=== PATIENT | female | born 2000 | race Caucasian/White ===

== ENCOUNTER 2021-04-03 17:11 | Emergency (ER) | payer BC ==
[~2021-04-03] VITALS: Ht 157.5 cm; Wt 106.7 kg
--- NOTE | 2021-04-03 17:36 | PHYS DOC ---
Past History Past Surgical History: Other Additional Past Surgical Histo: wisdom teeth (HOWIE LEE APRN) General Adult EDM: Chief Complaint: CHEST PAIN HPI: HPI: Patient is a 20-year-old female who presents to the ER for midsternal chest pain across chest which she rates 3 out of 10. She describes the pain as a dull ache. Pain started on Wednesday. Pain is worse with bending over. Patient reports mild shortness of breath. She denies any diaphoresis, nausea, vomiting, fever, cough. She states the symptoms started after getting her Covid vaccine. Patient has a history of IBS and GERD. Her vital signs are stable. Patient was seen for the symptoms at an urgent care this afternoon and was discharged with a steroid and inhaler that she did not feel. Patient instead went to her primary care provider who referred her to the ER for cardiac work-up. (HOWIE LEE APRN) Review of Systems: Review of Systems: 14 body systems of the review of systems have been reviewed. See HPI for pertinent positive and negative responses, otherwise all other systems are negative, nonpertinent or noncontributory (HOWIE LEE APRN) Physical Exam: PE: Constitutional: Well developed, well nourished, no acute distress, non-toxic appearance. [] HENT: Normocephalic, atraumatic, bilateral external ears normal, oropharynx moist, no oral exudates, nose normal. [] Eyes: PERRL, EOMI, conjunctiva normal, no discharge. [] Neck: Normal range of motion, no tenderness, supple, no stridor. [] Cardiovascular:Heart rate regular rhythm, no murmur [] Lungs & Thorax: Bilateral breath sounds clear to auscultation [] Abdomen: Bowel sounds normal, soft, no tenderness, no masses, no pulsatile masses. [] Skin: Warm, dry, no erythema, no rash. [] Back: Normal range of motion Extremities: No tenderness, no cyanosis, no clubbing, ROM intact, no edema. [] Neurologic: Alert and oriented X 3, normal motor function, normal sensory function, no focal deficits noted. [] Psychologic: Affect normal, judgement normal, mood normal. [] (HOWIE LEE APRN) Current Patient Data: Vital Signs: Vital Signs Date Time Temp Pulse Resp B/P (MAP) Pulse Ox O2 Delivery O2 Flow Rate FiO2 04/03/21 17:22 99.1 97 19 168/100 (122) 98 Room Air (HOWIE LEE APRN) EKG: EKG: EKG performed by ER staff at 1738 shows sinus rhythm, no STEMI read by Dr. Nowak (HOWIE LEE APRN) Radiology/Procedures: Radiology/Procedures: ROCEDURE: PORTABLE CHEST 1V XR CHEST 1V History: Reason: cp / Spl. Instructions: / History: Comparison: None. Findings: No consolidation or pleural effusion. Normal heart size. No pneumothorax. Impression: 1. No acute cardiopulmonary process. Electronically signed by: Rm Becerra DO (04/03/2021 5:56 PM) [facility] DICTATED AND SIGNED BY: RM BECERRA DO DATE: 04/03/211755 CC: EYAL DELGADILLO MD; EMERGENCY,DEPARTMENT; HOWIE LEE APRN ~MTH0 0 [] (HOWIE LEE APRN) Heart Score: C/O Chest Pain: Yes HEART Score for Chest Pain: HEART Score for Chest Pain Response (Comments) Value History Slighlty/Non-Suspicious 0 ECG Normal 0 Age < 45 0 Risk Factors No Risk Factors 0 Troponin < Normal Limit 0 Total 0 Risk Factors: Risk Factors: DM, Current or recent (<one month) smoker, HTN, HLP, family history of CAD, obesity. Risk Scores: Score 0 - 3: 2.5% MACE over next 6 weeks - Discharge Home Score 4 - 6: 20.3% MACE over next 6 weeks - Admit for Clinical Observation Score 7 - 10: 72.7% MACE over next 6 weeks - Early Invasive Strategies (HOWIE LEE APRN) Course & Med Decision Making: Course & Med Decision Making Pertinent Labs and Imaging studies reviewed. (See chart for details) [] Patient is a 20-year-old female being seen in the ER for generalized chest pain that started on Wednesday after getting the Covid vaccine. Work-up in the ER consisted of blood work, EKG, chest x-ray. Heart score 0. Work-up in the ER was unremarkable. Patient is noted to have UTI. Patient treated with antibiotic. Patient discharged home to follow-up with primary care provider. Patient advised to fill the medications that she was given by the urgent care today. I discussed with patient all findings and diagnostic testing as well as the need to follow-up with PCP for further evaluation and treatment or return to the ER if any new or worsening symptoms. Strict return precautions were also discussed at length. Patient voiced understanding and agreement with the plan. Patient is hemodynamically stable at the time of disposition. (HOWIE LEE APRN) Course & Med Decision Making Did not see or evaluate patient. Did not discuss patient with REROLLER HAND. Agree with REROLLER HAND's work-up and disposition per note. (KAREN NOWAK MD) Dragon Disclaimer: Dragon Disclaimer: This electronic medical record was generated, in whole or in part, using a voice recognition dictation system. (HOWIE LEE ACUTE CARE NURSE) Departure Departure: Impression: Primary Impression: Chest pain Qualified Codes: R07.9 - Chest pain, unspecified Disposition: HOME / SELF CARE / HOMELESS Condition: GOOD Referrals: EYAL DELGADILLO MD (PCP) Patient Instructions: Chest Pain (Nonspecific) Additional Instructions: You were seen in the ER today for chest pain after receiving her Covid vaccine. Your blood work was unremarkable. Your chest x-ray was negative for any acute findings. Your EKG was unremarkable. Your urinalysis showed a urinary tract infection. This will be treated with an antibiotic. Please start and finish this completely. Follow-up with your primary care provider tomorrow regarding your ER visit. It would be reardon to fill the prescription that you received from the urgent care today. Please return to the ER if you develop worsening of your chest pain, shortness of breath, nausea/vomiting, high fevers refractory to treatment or any new or worsening concerns. EMERGENCY DEPARTMENT GENERAL DISCHARGE INSTRUCTIONS Thank you for coming to [facility] (ED) today and trusting us with you care. We trust that you had a positivie experience in our Emergency Department. If you wish to speak to the department management, you may call the director at [phone]. YOUR FOLLOW UP INSTRUCTIONS ARE FOLLOWS: 1. Do you have a private Doctor? If you do not have a private doctor, please ask for a resource list of physicians or clinics that may be able to assist you with follow up care. 2. The Emergency Physician has interpreted your x-rays. The X-Ray specialist will also review them. If there is a change in the findings, you will be notified in 48 hours when at all possible. 3. A lab test or culture has been done, your results will be reviewed and you will be notified if you need a change in treatment. ADDITIONAL INSTRUCTIONS AND INFORMATION: 1. Your care today has been supervised by a physician who is specially trained in emergency care. Many problems require more than one evaluation for a complete diagnosis a nd treatment. We recommend that you schedule your follow up appointment as recommended to ensure complete treatment of you illness or injury. If you are unable to obtain follow up care and continue to have a problem, or if your condition worsens, we recommend that you return to the ED. 2. We are not able to safely determine your condition over the phone nor are we able to give sound medical advice over the phone. For these safety reasons, if you call for medical advice we will ask you to come to the ED for further evaluation. 3. If you have any questions regarding these discharge instructions please call the ED at [phone]. SAFETY INFORMATION: In the interest of safety, wellness, and injury prevention; we encourage you to wear your sealbelt, if you smoke; quite smoking, and we encourage family to use a protective helmet for bicycling and other sporting events that present an increased risk for head injury. IF YOUR SYMPTOMS WORSEN OR NEW SYMPTOMS DEVELOP, OR YOU HAVE CONCERNS ABOUT YOUR CONDITION; OR IF YOUR CONDITION WORSENS WHILE YOU ARE WAITING FOR YOUR FOLLOW UP APPOINTMENT; EITHER CONTACT YOUR PRIMARY CARE DOCTOR, THE PHYSICIAN WHOSE NAME AND NUMBER YOU WERE GIVEN, OR RETURN TO THE ED IMMEDIATELY. Scripts Cephalexin (CEPHALEXIN) 500 Mg Tablet 1 TAB PO BID for UTI for 7 Days, #14 TAB 0 Refills Prov: HOWIE LEE APRN 04/03/21 HOWIE LEE APRN Apr 03, 2021 17:36 KAREN NOWAK MD Apr 03, 2021 20:25
[2021-04-03] MEDS ORDERED: DICY10CA3 PO (17:47)
[2021-04-03] MEDS ORDERED: FAMO40TA4 PO (17:47)
--- NOTE | 2021-04-03 17:55 | EKG ---
[address] [address] Test Date: 2021-04-03 Test Time: 17:38:59 Pat Name: GERI JACKSON Department: Room: Gender: F [employer]: LUCHO : 2000 Requested By: HOWIE LEE Order Number: [id number] Reading MD: Measurements Intervals [place] Rate: 84 P: 29 WV: 164 QRS: 11 QRSD: 84 T: 7 QT: 352 QTc: 419 Interpretive Statements SINUS RHYTHM NORMAL ECG RI6.02 No previous ECG available for comparison
--- NOTE | 2021-04-03 17:59 | RAD ---
XR CHEST 1V History: Reason: cp / Spl. Instructions: / History: Comparison: None. Findings: No consolidation or pleural effusion. Normal heart size. No pneumothorax. Impression: 1. No acute cardiopulmonary process. Electronically signed by: Rm Becerra DO (04/03/2021 5:56 PM) [facility]
[2021-04-03 18:09] LABS: BASO % 0 % (0-3); EOS # 0.2 x10^3/uL (0.0-0.7); EOS % 2 % (0-3); HEMATOCRIT 41.5 % (36.0-47.0); HEMOGLOBIN 14.1 g/dL (12.0-15.5); LYMPH # 3.5 x10^3/uL (1.0-4.8); LYMPH % 33 % (24-48); MEAN CORPUSCULAR HEMOGLOBIN 28 pg (25-35); MEAN CORPUSCULAR HGB CONC 34 g/dL (31-37); MEAN CORPUSCULAR VOLUME 83 fL (79-100); MONO # 0.8 x10^3/uL (0.0-1.1); MONO % 8 % (0-9); NEUT % 57 % (31-73); PLATELET COUNT 269 x10^3/uL (140-400); RED BLOOD COUNT 5.01 x10^6/uL (3.50-5.40); RED CELL DISTRIBUTION WIDTH 12.6 % (11.5-14.5); WHITE BLOOD COUNT 10.5 x10^3/uL (4.0-11.0)
[2021-04-03 18:20] VITALS: BP 159/93
[2021-04-03 18:49] LABS: CALCIUM 9.1 mg/dL (8.5-10.1); CREATININE 0.7 mg/dL (0.6-1.0); GFR 105.6; POTASSIUM 4.3 mmol/L (3.5-5.1)
[2021-04-03 18:49] LABS: BACTERIA,URINE FEW /HPF (0-FEW); BILIRUBIN,URINE NEG (NEG); CLARITY,URINE CLEAR; COLOR,URINE YELLOW; GLUCOSE,URINE NEG (NEG); NITRITE,URINE NEG (NEG); RBC,URINE 0 /HPF (0-2); SQUAMOUS EPITHELIAL CELL,UR FEW /LPF; UROBILINOGEN,URINE 0.2 mg/dL (0.2 mg/dL)
[2021-04-03 19:13] LABS: ALBUMIN 3.5 g/dL (3.4-5.0); ALBUMIN/GLOBULIN RATIO 1.1 (1.0-1.7); TOTAL BILIRUBIN 0.2 mg/dL (0.2-1.0); TOTAL PROTEIN 6.7 g/dL (6.4-8.2)
[2021-04-03] MEDS ORDERED: CEPH500T PO (19:23)
== END 2021-04-03 19:47 | disposition home or self-care (01) ==
LOC: ER 17:11
DX: R07.89 Other chest pain (principal)
CPT/HCPCS: 36415; 71045; 80053; 81001; 84484; 85025; 87086; 93005; 99285-25